=== PATIENT | female | born 1955 | race Caucasian/White ===

== ENCOUNTER 2024-01-19 09:38 | Observation (INO) | payer SELFPAY ==
[2024-01-19] MEDS ORDERED: METOCLOPRAMIDE HCL INJECTION 10 MG/2 ML VIAL ONE (11:22)
[2024-01-19] MEDS: METOCLOPRAMIDE HCL INJECTION 10 MG/2 ML VIAL IVPB ONE (11:24)
[2024-01-19 12:02] LABS: EPI CELLS >36 /uL (0-25.1); HYALINE CASTS 0 /uL (0-3.1); URINE APPEARANCE CLEAR; URINE BACTERIA 2915 /uL (0-1359); URINE BILIRUBIN NEGATIVE (NEGATIVE); URINE COLOR YELLOW; URINE GLUCOSE (UA) NEGATIVE (NEGATIVE); URINE KETONE NEGATIVE (NEGATIVE); URINE LEUK ESTERASE TRACE (NEGATIVE); URINE NITRITE NEGATIVE (NEGATIVE); URINE PROTEIN NEGATIVE (NEGATIVE); URINE RBC 10 /uL (0-23.9); URINE UROBILINOGEN 0.2 mg/dL (0.2-1.0); URINE WBC 81 /uL (0-25.8)
[2024-01-19 12:03] LABS: BASO % 0.8 % (0-2.0); EOS % 1.3 % (0-4.5); HEMATOCRIT 42.4 % (32.4-45.2); HEMOGLOBIN 14.5 GM/dL (10.7-15.3); LYMPH % 21.4 % (8-40); MCH 29.7 pg (25.7-33.7); MCHC 34.1 g/dl (32.0-36.0); MEAN CELL VOLUME 87.1 fl (80-96); MONO % 3.8 % (3.8-10.2); NEUT % 72.7 % (42.8-82.8); PLATELET COUNT 252 10^3/uL (134-434); RBC 4.87 M/mm3 (3.60-5.2); RDW 13.4 % (11.6-15.6); WHITE BLOOD COUNT 5.6 K/mm3 (4.0-10.0)
[2024-01-19 12:08] LABS: INR 0.96 (0.83-1.09)
[2024-01-19 12:11] LABS: ACTIVATED PTT 34.1 SECONDS (25.2-36.5)
[2024-01-19 12:25] LABS: POTASSIUM 4.2 mmol/L (3.5-5.1)
[2024-01-19 12:31] LABS: ALBUMIN 3.5 g/dl (3.4-5.0); BLOOD UREA NITROGEN 9.3 mg/dL (7-18); CALCIUM 9.5 mg/dL (8.5-10.1)
[2024-01-19 12:33] LABS: CREATININE 0.6 mg/dL (0.55-1.3)
[2024-01-19 12:34] LABS: BILIRUBIN,TOTAL 0.5 mg/dL (0.2-1)
[2024-01-19 12:36] LABS: TOT PROT 7.6 g/dl (6.4-8.2)
[2024-01-19] MEDS ORDERED: ASPIRIN 81 MG CHEWABLE TABLETS ONE (13:06)
[2024-01-19] MEDS: ASPIRIN 81 MG CHEWABLE TABLETS PO ONE (13:10)
[2024-01-19] MEDS: DEXTROSE 5%-0.45% SALINE 1,000 ML IV SCH (17:37)
[2024-01-19 21:09] VITALS: BMI 34.1
[2024-01-19] MEDS: MECLIZINE HCL 25 MG TABLET (FP) PO PRN (22:01)
[2024-01-20 06:48] LABS: BASO % 0.9 % (0-2.0); EOS % 3.2 % (0-4.5); HEMATOCRIT 40.6 % (32.4-45.2); HEMOGLOBIN 13.7 GM/dL (10.7-15.3); LYMPH % 34.2 % (8-40); MCH 29.7 pg (25.7-33.7); MCHC 33.6 g/dl (32.0-36.0); MEAN CELL VOLUME 88.2 fl (80-96); MEAN PLT VOLUME 8.1 fl (7.5-11.1); MONO % 5.2 % (3.8-10.2); NEUT % 56.5 % (42.8-82.8); PLATELET COUNT 233 10^3/uL (134-434); RBC 4.61 M/mm3 (3.60-5.2); RDW 13.6 % (11.6-15.6); WHITE BLOOD COUNT 5.6 K/mm3 (4.0-10.0)
[2024-01-20 06:59] LABS: POTASSIUM 3.6 mmol/L (3.5-5.1)
[2024-01-20 07:01] LABS: CALCIUM 8.9 mg/dL (8.5-10.1)
[2024-01-20 07:02] LABS: ALBUMIN 3.3 g/dl (3.4-5.0); BLOOD UREA NITROGEN 7.2 mg/dL (7-18)
[2024-01-20 07:05] LABS: CREATININE 0.5 mg/dL (0.55-1.3)
[2024-01-20 07:06] LABS: BILIRUBIN,TOTAL 0.4 mg/dL (0.2-1)
[2024-01-20] MEDS: ENOXAPARIN NA (PORCINE) 40 MG/0.4 ML DISP.SYRIN SQ SCH (09:02)
[2024-01-20] MEDS: amLODIPine BESYLATE 5 MG TABLET (FP) PO SCH (17:39)
[2024-01-21 06:31] VITALS: BP 122/67; PULSE 76; TEMP 98.1
[2024-01-21 08:30] LABS: CHOLESTEROL 278 mg/dL (50-200)
[2024-01-21 08:31] LABS: LDL CHOLESTEROL (ONLY SJRH) 185 mg/dL (5-100)
[2024-01-21 08:33] LABS: HDL CHOLESTEROL 53 mg/dL (40-60)
[2024-01-21 11:29] VITALS: RESP 16
[2024-01-21] MEDS ORDERED: ATORVASTATIN CA 20 MG TABLET (FP) PO SCH (22:00)
== END 2024-01-21 15:48 | disposition home or self-care (01) ==
LOC: JER 09:38 → UNDOADMOB 12:52 → JERBED 12:52 → INTOOBSV 15:25 → OBSVTOIN 15:25 → JERBED 16:07 → J4S 19:21
PROVIDERS: ADMIT Internal Medicine; ATTEND Internal Medicine
PROC: 3E023GC Introduction of Other Therapeutic Substance into Muscle, Percutaneous Approach (ICD-10-PCS; principal; 2024-01-19)
PROC: 3E033GC Introduction of Other Therapeutic Substance into Peripheral Vein, Percutaneous Approach (ICD-10-PCS; 2024-01-19)
DX: R42 Dizziness and giddiness (principal); I16.0 Hypertensive urgency; R55 Syncope and collapse; E78.00 Pure hypercholesterolemia, unspecified
CPT/HCPCS: 36415; 70450-TC; 70551-TC; 71045-TC-FY; 80053; 80061; 81003; 82550; 82962; 83036; 83690; 84443; 84484; 85025; 85610; 85730; 86850; 86900; 86901; 87086; 93005; 93010; 93306-TC; 93880-TC; 99285-25; G0378